=== PATIENT | female | born 1965 | race Caucasian/White ===

== ENCOUNTER → 2017-08-22 | Outpatient (CLI) | payer BC ==
--- NOTE | 2017-08-25 10:44 | RSPPFT ---
DATE OF PROCEDURE: 08/22/17 COMMENTS: VOLUMES DYNAMIC: FVC low normal; FEV1 mildly reduced. STATIC: FRC mildly reduced; RV and TLC normal. FLOWS: FEV1% normal; FEF 25-75 mildly reduced. DIFFUSION: Normal. FLOW VOLUME LOOP: Terminal airflow obstruction. IMPRESSION: Very mild obstructive ventilatory defect with some improvement post-bronchodilator. Airways resistance is increased. Diffusion capacity is normal.
== END ==
LOC: HRSP 12:39
PROVIDERS: ATTEND Internal Medicine
DX: R06.02 Shortness of breath (principal); J98.4 Other disorders of lung
CPT/HCPCS: 94060; 94618; 94726; 94729